=== PATIENT | male | born 1960 | race Caucasian/White ===

== ENCOUNTER 2020-04-05 10:02 | Emergency (ER) | payer OTHER ==
[2020-04-05 10:21] VITALS: O2SAT 96
--- NOTE | 2020-04-05 10:50 | RAD ---
EXAM DESCRIPTION: Knee,Right Complete CLINICAL HISTORY: 59 years, Male, twisted last night COMPARISON: None TECHNIQUE: Three views of the right knee FINDINGS: No fracture or dislocation. Bones appear normally mineralized with normal trabecular pattern. Narrowed appearance of medial compartment on frontal view. Lateral view shows normal position of the patella. Mild posterior patellar spurring. Moderate sized suprapatellar knee joint effusion is present. Normal contour of quadriceps and patellar tendons. No abnormal patellar tilt or subluxation on patellar sunrise view. IMPRESSION: Moderate-sized knee joint effusion. Degenerative changes as described. Electronically signed by: Niall Connors MD 04/05/2020 10:49 AM [facility]
--- NOTE | 2020-04-05 10:57 | ED.PDOC ---
History of Present Illness - General Chief Complaint: Lower Extremity Injury Stated Complaint: right knee pain Time Seen by Provider: 04/05/20 10:28 Source: patient Exam Limitations: no limitations - History of Present Illness Initial Comments: The patient is a 59-year-old male presented emergency room secondary to pain in his right knee after twisting it last night going up stairs. There is swelling around the knee. There is pain over the lateral collateral ligament. There is pain with the posterior drawer test. The patient tenses up too much to get an adequate ligament test however. There is no palpable deformity. He is neurovascularly intact in distally. Timing/Duration: 24 hours Severity: moderate Improving Factors: nothing Worsening Factors: movement Associated Symptoms: denies symptoms Allergies/Adverse Reactions: Allergies NO KNOWN ALLERGY Allergy (Verified 04/05/20 10:20) Home Medications: Ambulatory Orders [id number]-[id number]-[id number] [Fioricet] 1 ea PO Q8H PRN #21 tab 04/05/20 Lisinopril 40 mg PO DAILY 04/05/20 Review of Systems - Review of Systems Constitutional: States: no symptoms reported EENTM: States: no symptoms reported Respiratory: States: no symptoms reported Cardiology: States: no symptoms reported Gastrointestinal/Abdominal: States: no symptoms reported Genitourinary: States: no symptoms reported Musculoskeletal: States: see HPI Skin: States: no symptoms reported Neurological: States: no symptoms reported Endocrine: States: no symptoms reported All other Systems: No Change from Baseline Past Medical History (General) - Patient Medical History Hx Stroke: No Hx Congestive Heart Failure: No Hx Hypertension: Yes Hx Diabetes: No Surgical History: no surgical history - Vaccination History Hx Influenza Vaccination: Yes Hx Pneumococcal Vaccination: No - Social History Hx Tobacco Use: No Family Medical History - Family History Father Family History: Unknown Living Status: Unknown Physical Exam - Physical Exam General Appearance: Alert, Comfortable, No apparent distress Eye Exam: bilateral normal Ears, Nose, Throat: hearing grossly normal Neck: full range of motion, supple Respiratory: no respiratory distress, no accessory muscle use Cardiovascular/Chest: normal peripheral pulses, no edema, other - Regular rate Peripheral Pulses: radial,right: 2+, radial,left: 2+, dorsalis pedis,right: 2+, dorsalis pedis,left: 2+ Gastrointestinal/Abdominal: non tender, soft Rectal Exam: deferred Extremity: no pedal edema, no calf tenderness, normal capillary refill, other - See history of present illness. Passive range of motion is preserved. 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 The patient does have significant swelling around the knee already. Exam indicates injury to the lateral collateral ligament and possibly the posterior cruciate ligament. It is difficult to tell at this time. The patient is going to be placed in a knee immobilizer. He needs to keep this in place to reduce strain on the knee. After 3 or 4 days he needs to start doing range of motion exercises with no weight. He needs to follow-up with orthopedics or his primary care doctor and 10 days to 2 weeks for repeat evaluation and possible additional imaging if indicated at that time. Anti-inflammatory such as Motrin or Aleve will likely provide the most relief. He will also be written for some Fioricet for as needed use. ER warnings are given. [email or web address] [email or web address] [id number] - Results/Orders Results/Orders: Three-view x-ray of the knee shows no acute pathology aside from soft tissue swelling. Departure - Departure Clinical Impression: Sprain of right knee Qualifiers: Encounter type: initial encounter Involved ligament of knee: lateral collateral ligament Qualified Code(s): S83.421A - Sprain of lateral collateral ligament of right knee, initial encounter Disposition: Discharge to Home or Self Care Condition: Fair Departure Forms: ED Discharge - Pt. Copy, Patient Portal Self Enrollment Instructions: DI for Leg Pain, Knee Sprain (DC) Diet: regular diet Activity: no pushing/pulling with affected limb Referrals: Lillie Masterson NP [Primary Care Provider] - 1-2 Weeks Prescriptions: [id number]-Epno-Dmgddztjyr [Fioricet] 1 ea PO Q8H PRN #21 tab PRN Reason: Pain Home Medications: Ambulatory Orders Svreceoikndni-Fdcw-Qfrvbjpthm [Fioricet] 1 ea PO Q8H PRN #21 tab 04/05/20 Lisinopril 40 mg PO DAILY 04/05/20 Additional Instructions: The patient is a 59-year-old male presented emergency room secondary to twisting his right knee last night. The patient does have significant swelling around the knee already. Exam indicates injury to the lateral collateral ligament and possibly the posterior cruciate ligament. It is difficult to tell at this time. The patient is going to be placed in a knee immobilizer. He needs to keep this in place to reduce strain on the knee. After 3 or 4 days he needs to start doing range of motion exercises with no weight. He needs to follow-up with orthopedics or his primary care doctor and 10 days to 2 weeks for repeat evaluation and possible additional imaging if indicated at that time. Anti-inflammatory such as Motrin or Aleve will likely provide the most relief. He will also be written for some Fioricet for as needed use. ER warnings are given.
[2020-04-05 11:18] VITALS: BP 121/83; TEMP 97.1
== END 2020-04-05 11:18 | disposition home or self-care (01) ==
LOC: ER 10:02
DX: S83.421A Sprain of lateral collateral ligament of right knee, initial encounter (principal); I10 Essential (primary) hypertension; Z79.899 Other long term (current) drug therapy; X50.9XXA Other and unspecified overexertion or strenuous movements or postures, initial encounter; Y93.89 Activity, other specified; Y92.9 Unspecified place or not applicable